=== PATIENT | male | born 1970 | race Caucasian/White ===

== ENCOUNTER 2019-10-17 14:16 | Inpatient (IN) | payer BC ==
[2019-10-17] MEDS ORDERED: KETOROLAC 30 MG/ML 1 ML VIAL IVP STA (14:44)
[2019-10-17] MEDS ORDERED: SODIUM CHLORIDE 0.9% 1,000 ML IV STA (14:44)
[2019-10-17 15:04] LABS: Basophils % (A) 0 %; Eosinophils % (A) 1 %; HCT 53.3 % (39.0-53.0); HGB 17.8 gm/dL (13.0-17.5); Lymphocytes % (A) 10 %; MCH 33.9 pg (25.0-35.0); MCHC 33.3 g/dL (31.0-37.0); MCV 101.8 fL (80.0-100.0); Monocytes % (A) 5 %; Neutrophils % (A) 83 %; Platelet Count 249 k/uL (150-450); RBC 5.24 m/uL (4.30-5.90); RDW 12.5 % (11.5-15.5); WBC 9.8 k/uL (3.8-10.6)
[2019-10-17 15:05] LABS: Eosinophils # (A) 0.1 k/uL (0-0.7); Monocytes # (A) 0.5 k/uL (0-1.0); Neutrophils # (A) 8.1 k/uL (1.3-7.7)
[2019-10-17 15:08] LABS: Appearance,Urine Clear (Clear); Bilirubin,Urine Negative (Negative); Blood,Urine Negative (Negative); Color,Urine Yellow; Glucose,Urine (UA) Negative (Negative); Ketones,Urine 1+ (Negative); Leukocyte Esterase,Urine Negative (Negative); Nitrite,Urine Negative (Negative); Protein,Urine Trace (Negative); Specific Gravity,Urine 1.027 (1.001-1.035)
[2019-10-17 15:13] LABS: ALT 25 U/L (4-49); AST 35 U/L (17-59); African American GFR (CKD) >90 (>60 ml/min/1.73 sqM); Albumin 4.4 g/dL (3.5-5.0); Alkaline Phosphatase 113 U/L (38-126); Amylase 53 U/L (30-110); Anion Gap 11 mmol/L; Blood Urea Nitrogen 11 mg/dL (9-20); Calcium 9.8 mg/dL (8.4-10.2); Carbon Dioxide 22 mmol/L (22-30); Chloride 101 mmol/L (98-107); Glucose 105 mg/dL (74-99); Non-African American GFR(CKD) >90 (>60 ml/min/1.73 sqM); Potassium 3.9 mmol/L (3.5-5.1); Sodium 134 mmol/L (137-145); Total Bilirubin 0.7 mg/dL (0.2-1.3)
--- NOTE | 2019-10-17 15:16 | ED ---
Abdominal Pain HPI <Jose Ocampo - Last Filed: 10/17/19 16:09> - General Source: patient Mode of arrival: ambulatory Limitations: no limitations <Miri Spivey - Last Filed: 10/17/19 18:53> - General Chief Complaint: Abdominal Pain Stated Complaint: nausea,abd pain Time Seen by Provider: 10/17/19 14:25 - History of Present Illness Initial Comments: Patient is a 49-year-old male, history hypertension, presenting to the emergency Department with complaints of severe abdominal pain that started this morning. Patient states for the last month he has been having irregular bowel movements with bouts of diarrhea. Patient states that has started to clear up and then today he had acute onset of abdominal discomfort that he describes as very generalized, severe from 7-10/10, and is not letting up. Patient states he's never had this kind of pain before. He denies any nausea or vomiting. He denies fever, chills, chest pain, shortness of breath. He states he had a regular bowel movement yesterday. He does admit to being an everyday drinker and has had a "few drinks" today. He also admits to being every day smoker, no other drug use. Patient has no other complaints at this time. Upon arrival to the ER, patient's blood pressure is slightly elevated at 189/99, rest of vitals normal. (Miri Spivey) - Related Data Home Medications Medication Instructions Recorded Confirmed Lisinopril-Hctz 20-12.5 mg 1 tab PO DAILY 10/17/19 10/17/19 [Zestoretic 20-12.5] Allergies Allergy/AdvReac Type Severity Reaction Status Date / Time No Known Allergies Allergy Verified 10/17/19 16:16 Review of Systems ROS Other: All systems not noted in ROS Statement are negative. <Jose Ocampo - Last Filed: 10/17/19 16:09> ROS Other: All systems not noted in ROS Statement are negative. <Miri Spivey - Last Filed: 10/17/19 18:53> ROS Statement: Those systems with pertinent positive or pertinent negative responses have been documented in the HPI. Past Medical History Past Medical History: Hypertension, Thyroid Disorder History of Any Multi-Drug Resistant Organisms: None Reported Past Surgical History: No Surgical Hx Reported Past Psychological History: No Psychological Hx Reported Smoking Status: Current every day smoker Past Alcohol Use History: None Reported Past Drug Use History: None Reported - Past Family History Father Family Medical History: Hypertension Mother Family Medical History: COPD, Hypertension Additional Family Medical History / Comment(s): Mother is . Patients grandfather from prostate cancer. <AllyssaMiri Baldemar - Last Filed: 10/17/19 18:53> General Exam Limitations: no limitations <Miri Spivey - Last Filed: 10/17/19 18:53> - General Exam Comments Initial Comments: GENERAL: Well-appearing, well-nourished and in no acute distress. HEAD: Atraumatic, normocephalic. EYES: Pupils equal round and reactive to light, extraocular movements intact, sclera anicteric, conjunctiva are normal. ENT: TMs normal, nares patent, oropharynx clear without exudates. Moist mucous membranes. NECK: Normal range of motion, supple without lymphadenopathy or JVD. LUNGS: Breath sounds clear to auscultation bilaterally and equal. No wheezes rales or rhonchi. HEART: Regular rate and rhythm without murmurs, rubs or gallops. ABDOMEN: Generalized abdominal tenderness with palpation. Soft, normoactive bowel sounds. No guarding, no rebound. No masses appreciated. : Deferred EXTREMITIES: Normal range of motion, no pitting or edema. No clubbing or cyanosis. NEUROLOGICAL: Cranial nerves II through XII grossly intact. Normal speech, normal gait. PSYCH: Normal mood, normal affect. SKIN: Warm, Dry, normal turgor, no rashes or lesions noted. (Miri Spivey) Course <Jose Ocampo - Last Filed: 10/17/19 16:09> Vital Signs 10/17/19 10/17/19 10/17/19 14:21 16:00 16:42 Temperature 98.1 F 98.1 F 98.4 F Pulse Rate 70 68 76 Respiratory 18 20 20 Rate Blood Pressure 189/99 158/76 155/65 O2 Sat by Pulse 98 98 99 Oximetry - Reevaluation(s) Reevaluation #1: 10/17/19 16:09 PA supervision: I proceeded [id number] evaluation the patient did present with complaints of abdominal pain. States it radiates more to the right than the left CAT scan was performed and did show some evidence of possible intussusception. The case was discussed with Dr. Riley the patient be admitted with medical consultation. (Jose Ocampo) Medical Decision Making - Lab Data Result diagrams: 10/17/19 14:45 10/17/19 14:45 <Jose Ocampo - Last Filed: 10/17/19 16:09> - Lab Data Result diagrams: 10/17/19 14:45 10/17/19 14:45 <Miri Spivey - Last Filed: 10/17/19 18:53> - Medical Decision Making Patient is a 41-year-old male presenting for generalized abdominal pain that started this morning. Patient states he's been having intermittent diarrhea. Normal bowel movement yesterday. He does admit to being in every day alcoholic and drinking a few drinks today. Serum alcohol today is 58. He is afebrile. Lab work shows no significant abnormalities, lactic acid is 1.8, lipase is 69, urine shows 1+ ketones. CT of the abdomen shows dilated jejunal loops suggest kate of intussusception. Patient was given fluids and pain control but is still having significant pain. Case was discussed with Dr. Sahu who recommends admission. We will put medicine on consult, [facility] protocol in place. Patient is in agreement with this plan. Case discussed with Dr. Ocampo. (Miri Spivey) - Lab Data Lab Results 10/17/19 10/17/19 10/17/19 Range/Units 14:35 14:45 14:45 WBC 9.8 (3.8-10.6) k/uL RBC 5.24 (4.30-5.90) m/uL Hgb 17.8 H (13.0-17.5) gm/dL Hct 53.3 H (39.0-53.0) % MCV 101.8 H (80.0-100.0) fL MCH 33.9 (25.0-35.0) pg MCHC 33.3 (31.0-37.0) g/dL RDW 12.5 (11.5-15.5) % Plt Count 249 (150-450) k/uL Neutrophils % 83 % Lymphocytes % 10 % Monocytes % 5 % Eosinophils % 1 % Basophils % 0 % Neutrophils # 8.1 H (1.3-7.7) k/uL Lymphocytes # 1.0 (1.0-4.8) k/uL Monocytes # 0.5 (0-1.0) k/uL Eosinophils # 0.1 (0-0.7) k/uL Basophils # 0.0 (0-0.2) k/uL PT 9.9 (9.0-12.0) sec INR 0.9 (<1.2) APTT 25.0 (22.0-30.0) sec Sodium (137-145) mmol/L Potassium (3.5-5.1) mmol/L Chloride (98-107) mmol/L Carbon Dioxide (22-30) mmol/L Anion Gap mmol/L BUN (9-20) mg/dL Creatinine (0.66-1.25) mg/dL Est GFR (CKD-EPI)AfAm (>60 ml/min/1.73 sqM) Est GFR (CKD-EPI)NonAf (>60 ml/min/1.73 sqM) Glucose (74-99) mg/dL Plasma Lactic Acid Chi (0.7-2.0) mmol/L Calcium (8.4-10.2) mg/dL Total Bilirubin (0.2-1.3) mg/dL AST (17-59) U/L ALT (4-49) U/L Alkaline Phosphatase (38-126) U/L Total Protein (6.3-8.2) g/dL Albumin (3.5-5.0) g/dL Amylase (30-110) U/L Lipase (23-300) U/L Urine Color Yellow Urine Appearance Clear (Clear) Urine pH 6.0 (5.0-8.0) Ur Specific [place] 1.027 (1.001-1.035) Urine Protein Trace H (Negative) Urine Glucose (UA) Negative (Negative) Urine Ketones 1+ H (Negative) Urine Blood Negative (Negative) Urine Nitrite Negative (Negative) Urine Bilirubin Negative (Negative) Urine Urobilinogen 2.0 (<2.0) mg/dL Ur Leukocyte Esterase Negative (Negative) Serum Alcohol mg/dL 10/17/19 10/17/19 10/17/19 Range/Units 14:45 14:45 14:45 WBC (3.8-10.6) k/uL RBC (4.30-5.90) m/uL Hgb (13.0-17.5) gm/dL Hct (39.0-53.0) % MCV (80.0-100.0) fL MCH (25.0-35.0) pg MCHC (31.0-37.0) g/dL RDW (11.5-15.5) % Plt Count (150-450) k/uL Neutrophils % % Lymphocytes % % Monocytes % % Eosinophils % % Basophils % % Neutrophils # (1.3-7.7) k/uL Lymphocytes # (1.0-4.8) k/uL Monocytes # (0-1.0) k/uL Eosinophils # (0-0.7) k/uL Basophils # (0-0.2) k/uL PT (9.0-12.0) sec INR (<1.2) APTT (22.0-30.0) sec Sodium 134 L (137-145) mmol/L Potassium 3.9 (3.5-5.1) mmol/L Chloride 101 (98-107) mmol/L Carbon Dioxide 22 (22-30) mmol/L Anion Gap 11 mmol/L BUN 11 (9-20) mg/dL Creatinine 0.76 (0.66-1.25) mg/dL Est GFR (CKD-EPI)AfAm >90 (>60 ml/min/1.73 sqM) Est GFR (CKD-EPI)NonAf >90 (>60 ml/min/1.73 sqM) Glucose 105 H (74-99) mg/dL Plasma Lactic Acid Chi 1.8 (0.7-2.0) mmol/L Calcium 9.8 (8.4-10.2) mg/dL Total Bilirubin 0.7 (0.2-1.3) mg/dL AST 35 (17-59) U/L ALT 25 (4-49) U/L Alkaline Phosphatase 113 (38-126) U/L Total Protein 7.0 (6.3-8.2) g/dL Albumin 4.4 (3.5-5.0) g/dL Amylase 53 (30-110) U/L Lipase 69 (23-300) U/L Urine Color Urine Appearance (Clear) Urine pH (5.0-8.0) Ur Specific [place] (1.001-1.035) Urine Protein (Negative) Urine Glucose (UA) (Negative) Urine Ketones (Negative) Urine Blood (Negative) Urine Nitrite (Negative) Urine Bilirubin (Negative) Urine Urobilinogen (<2.0) mg/dL Ur Leukocyte Esterase (Negative) Serum Alcohol 53 mg/dL Disposition <Jose Ocampo - Last Filed: 10/17/19 16:09> Is patient prescribed a controlled substance at d/c from ED?: No Decision Date: 10/17/19 Decision Time: 16:07 <Miri Spivey - Last Filed: 10/17/19 18:53> Clinical Impression: Abdominal pain, Intussusception, Alcohol abuse Disposition: ADMITTED IP TO THIS HOSP Condition: Good
[2019-10-17 15:18] LABS: INR 0.9 (<1.2); Prothrombin Time 9.9 sec (9.0-12.0)
--- NOTE | 2019-10-17 15:39 | CT ---
EXAMINATION TYPE: CT abdomen pelvis w con DATE OF EXAM: 10/17/2019 COMPARISON: None HISTORY: abdominal pain CT DLP: 612 mGycm CONTRAST: CT scan of the abdomen and pelvis is performed without Oral Contrast and with IV Contrast, patient in jected with 100 mL of Isovue 300. FINDINGS: LUNG BASES-: No visible nodule. No infiltrate. LIVER/GB: No calcified gallstones. No space occupying hepatic lesion. Biliary tree is of normal ca liber. PANCREAS: No inflammation. No distinct mass. SPLEEN: No splenic enlargement. No lesion seen. ADRENALS: No nodule. No thickening. KIDNEYS/BLADDER: No hydronephrosis. No nephrolithiasis. No distinct renal mass. Urinary bladder g rossly unremarkable. BOWEL: Normal appendix. Dilated jejunal loops measuring up to 3.2 cm. Axial images 35 through 40 of 9 0 axial data set and coronal images 40 through 48 suggest intussusception overlying the left midabdom en. Correlate clinically. GENITAL ORGANS: No gross abnormality. LYMPH NODES: No greater than 1cm abdominal or pelvic lymph nodes are appreciated. AORTA: No significant abnormality. OSSEOUS STRUCTURES: No significant abnormality is seen. OTHER: No significant additional abnormality is seen. IMPRESSION: 1. Dilated jejunal loops measuring up to 3.2 cm. Axial images 35 through 40 of 90 axial data set and coronal images 40 through 48 suggest intussusception overlying the left midabdomen. Correlate clinica lly.
[2019-10-17] MEDS ORDERED: THIAMINE 100 MG/ML 2 ML VIAL IM STA (16:02)
[2019-10-17] MEDS ORDERED: LORazepam 2 MG/ML INJ IV PRN ×3 (16:02)
[2019-10-17] MEDS ORDERED: ONDANSETRON 4 MG/2 ML VIAL IVP PRN (16:04)
[2019-10-17] MEDS ORDERED: NALOXONE 0.4 MG/ML 1 ML VIAL IV PRN (16:04)
[2019-10-17] MEDS ORDERED: MORPHINE SULFATE 4 MG/ML SYRINGE IVP STA (16:08)
[2019-10-17] MEDS ORDERED: SODIUM CHLORIDE 0.9% 1,000 ML IV SCH (16:15)
[2019-10-17] MEDS ORDERED: ACETAMINOPHEN TAB 325 MG TAB PO PRN (17:11)
[2019-10-17] MEDS ORDERED: HYDROmorphone 0.5 MG/0.5 ML SYRINGE IVP PRN (17:11)
[2019-10-17] MEDS: THIAMINE 100 MG TAB PO SCH (17:26)
[2019-10-17] MEDS: SODIUM CHLORIDE 0.9% 1,000 ML IV SCH (17:26)
--- NOTE | 2019-10-17 18:08 | P.GSHP ---
History of Present Illness H&P Date: 10/17/19 CHIEF COMPLAINT: Abdominal pain HISTORY OF PRESENT ILLNESS: The patient is a 49 year old male who presents with over a month and a half history of generalized abdominal pain. He reports passing flatus and having bowel movement yesterday. He does report change in bowel habits in the last 1 month as well. No reports of recent blood in stools. He was able to drink coffee and water earlier this morning. Reports more cramping sensation abdominal pain of the upper abdomen that brought him to the emergency room. No passage of flatus today. Denies any personal history of cancers. He had a CT of the abdomen and pelvis demonstrating intussusception hence the admission. Denies any alleviating factors. He does report walking causes more pain and pulling sensation of the upper abdomen. PAST MEDICAL HISTORY: See list. PAST SURGICAL HISTORY: See list. MEDICATIONS: See list. ALLERGIES: See list. SOCIAL HISTORY: See list. FAMILY HISTORY: See list. REVIEW OF ORGAN SYSTEMS: CONSTITUTIONAL: No fevers or chills. EYES: Denies any trouble with vision. No glasses. HEENT: No difficulties with hearing. No nosebleeds. No difficulty swallowing. RESPIRATORY: Denies pneumonia. Denies any troubles with breathing or dyspnea on exertion. CARDIOVASCULAR: Denies any chest pain, palpitations, or recent heart attacks. Has hypertension. GASTROINTESTINAL: Denies fatty food intolerance. Has change in bowel habits and gas bloat. GENITOURINARY: Denies any blood in urine or increased urinary frequency. NEUROLOGICAL: Denies any numbness or tingling along the distal extremities. No seizure disorders or headaches. MUSCULOSKELETAL: Has back pain, stiffness or joint arthritis. SKIN: No current skin cancer. No rash. PSYCHIATRIC: Denies current depression or suicidal thoughts. ENDOCRINE: Denies current thyroid disorders. Denies any blood sugar glucose intolerance. HEME/LYMPHATIC: Denies any lumps and bumps around the neck. No recent deep venous thrombosis. ALLERGY/IMMUNOLOGY: No immunoglobulin therapy. No immune deficiencies. BREAST: Denies current breast lumps, pain or nipple discharge. PHYSICAL EXAM: VITALS: Reviewed CONSTITUTIONAL: Well developed and in no acute distress. EYES: Conjuctivae without sclera icterus. Pupils are equally round and reactive to light. Extraocular movements grossly intact. HEAD, EARS, NOSE, THROAT: Moist buccal mucosa. Head is atraumatic, normocephalic. Hears conversational speech. No nasal drainage. NECK: Supple. No JV distention. No thyroidomegaly. RESPIRATORY: Non-labored respirations and equal bilateral excursions. No gross wheezes. CARDIOVASCULAR: Regular rate and rhythm. Extremities without moderate edema. Palpable 2+ radial pulses. ABDOMEN: Soft. No peritonitis. Minimal distention. Mild tenderness diffusely greater left upper abdomen. LYMPH: No neck lymphadenopathy. No axillary lymphadenopathy. MUSCULOSKELETAL: Nail and fingers with good capillary refill. SKIN: Warm and well perfused with good skin turgor. NEUROLOGIC: Cranial nerves II through XII grossly intact. Sensation upper and extremities intact. No focal or lateralizing signs. PSYCH: Appropriate affect. Alert and oriented to person, place and time. Displays appropriate insight. CLINCAL LABS: Reviewed. WBC normal 9800, serum alcohol elevated 53 IMAGING: Independently reviewed CT of the abdomen pelvis with bullet point intussusception at left upper quadrant. Proximal small bowel dilation. RADIOLOGY: Report reviewed consistent with intussusception. No free air. ASSESSMENT: 1. Intussusception 2. History of alcohol abuse PLAN: 1. Full inpatient admission for intussusception with small bowel obstruction 2. Hospitalist consultation for management of alcohol abuse and protocol 3. Robotic-assisted small bowel resection described for intussusception. Patient is elevated risk secondary to alcoholism. 4. Antibiotic prophylaxis 5. GI prophylaxis 6. DVT prophylaxis Past Medical History Past Medical History: Hypertension, Thyroid Disorder Additional Past Medical History / Comment(s): ETOH, patient has been drinking 1/2 pint of liquor and 3-6 beers daily for the past 2-2.5 years. History of Any Multi-Drug Resistant Organisms: None Reported Past Surgical History: No Surgical Hx Reported Past Anesthesia/Blood Transfusion Reactions: No Reported Reaction Past Psychological History: No Psychological Hx Reported Smoking Status: Current every day smoker Past Alcohol Use History: Abuse, Daily Past Drug Use History: None Reported - Past Family History Father Family Medical History: Hypertension Mother Family Medical History: COPD, Hypertension Additional Family Medical History / Comment(s): Mother is . Patients grandfather from prostate cancer. Medications and Allergies Home Medications Medication Instructions Recorded Confirmed Type Lisinopril-Hctz 20-12.5 mg 1 tab PO DAILY 10/17/19 10/17/19 History [Zestoretic 20-12.5] Allergies Allergy/AdvReac Type Severity Reaction Status Date / Time No Known Allergies Allergy Verified 10/17/19 16:16 Surgical - Exam Vital Signs Temp Pulse Resp BP Pulse Ox 98.1 F 70 18 189/99 98 10/17/19 14:21 10/17/19 14:21 10/17/19 14:21 10/17/19 14:21 10/17/19 14:21 Results - Labs 10/17/19 14:45 10/17/19 14:45 Abnormal Lab Results - Last 24 Hours (Table) 10/17/19 10/17/19 10/17/19 Range/Units 14:35 14:45 14:45 Hgb 17.8 H (13.0-17.5) gm/dL Hct 53.3 H (39.0-53.0) % MCV 101.8 H (80.0-100.0) fL Neutrophils # 8.1 H (1.3-7.7) k/uL Sodium 134 L (137-145) mmol/L Glucose 105 H (74-99) mg/dL Urine Protein Trace H (Negative) Urine Ketones 1+ H (Negative) Diabetes panel 10/17/19 Range/Units 14:45 Sodium 134 L (137-145) mmol/L Potassium 3.9 (3.5-5.1) mmol/L Chloride 101 (98-107) mmol/L Carbon Dioxide 22 (22-30) mmol/L BUN 11 (9-20) mg/dL Creatinine 0.76 (0.66-1.25) mg/dL Glucose 105 H (74-99) mg/dL Calcium 9.8 (8.4-10.2) mg/dL AST 35 (17-59) U/L ALT 25 (4-49) U/L Alkaline Phosphatase 113 (38-126) U/L Total Protein 7.0 (6.3-8.2) g/dL Albumin 4.4 (3.5-5.0) g/dL Calcium panel 10/17/19 Range/Units 14:45 Calcium 9.8 (8.4-10.2) mg/dL Albumin 4.4 (3.5-5.0) g/dL Pituitary panel 10/17/19 Range/Units 14:45 Sodium 134 L (137-145) mmol/L Potassium 3.9 (3.5-5.1) mmol/L Chloride 101 (98-107) mmol/L Carbon Dioxide 22 (22-30) mmol/L BUN 11 (9-20) mg/dL Creatinine 0.76 (0.66-1.25) mg/dL Glucose 105 H (74-99) mg/dL Calcium 9.8 (8.4-10.2) mg/dL Adrenal panel 10/17/19 Range/Units 14:45 Sodium 134 L (137-145) mmol/L Potassium 3.9 (3.5-5.1) mmol/L Chloride 101 (98-107) mmol/L Carbon Dioxide 22 (22-30) mmol/L BUN 11 (9-20) mg/dL Creatinine 0.76 (0.66-1.25) mg/dL Glucose 105 H (74-99) mg/dL Calcium 9.8 (8.4-10.2) mg/dL Total Bilirubin 0.7 (0.2-1.3) mg/dL AST 35 (17-59) U/L ALT 25 (4-49) U/L Alkaline Phosphatase 113 (38-126) U/L Total Protein 7.0 (6.3-8.2) g/dL Albumin 4.4 (3.5-5.0) g/dL Assessment and Plan (1) Hypertension Current Visit: Yes Status: Acute Code(s): I10 - ESSENTIAL (PRIMARY) HYPERTENSION SNOMED Code(s): 39532255 (2) Abdominal pain Current Visit: Yes Status: Acute Code(s): R10.9 - UNSPECIFIED ABDOMINAL PAIN SNOMED Code(s): 91298705 (3) Alcohol abuse Current Visit: Yes Status: Acute Code(s): F10.10 - ALCOHOL ABUSE, UNCOMPLICATED SNOMED Code(s): 03251330 (4) Intussusception Current Visit: Yes Status: Acute Code(s): K56.1 - INTUSSUSCEPTION SNOMED Code(s): 23628539
[2019-10-18] MEDS: KETOROLAC 30 MG/ML 1 ML VIAL IVP PRN ×2 (00:14→22:09)
[2019-10-18] MEDS: SODIUM CHLORIDE 0.9% 1,000 ML IV SCH ×3 (02:57→23:29)
[2019-10-18] MEDS: THIAMINE 100 MG TAB PO SCH ×2 (07:47→17:11)
[2019-10-18] MEDS: LISINOPRIL-HCTZ 20-12.5 MG 1 EACH TAB PO SCH (07:47)
[2019-10-18] MEDS: MORPHINE SULFATE 4 MG/ML SYRINGE IV PRN (07:54)
[2019-10-18 08:05] LABS: African American GFR (CKD) >90 (>60 ml/min/1.73 sqM); Anion Gap 15 mmol/L; Blood Urea Nitrogen 11 mg/dL (9-20); Calcium 9.7 mg/dL (8.4-10.2); Carbon Dioxide 21 mmol/L (22-30); Chloride 101 mmol/L (98-107); Glucose 70 mg/dL (74-99); Magnesium 1.6 mg/dL (1.6-2.3); Non-African American GFR(CKD) >90 (>60 ml/min/1.73 sqM); Potassium 4.2 mmol/L (3.5-5.1); Sodium 137 mmol/L (137-145)
[2019-10-18 08:15] LABS: Basophils % (A) 0 %; Eosinophils % (A) 0 %; Lymphocytes # (A) 0.9 k/uL (1.0-4.8); Lymphocytes % (A) 6 %; MCV 102.8 fL (80.0-100.0); Macrocytosis Slight; Mean Platelet Volume 9.1; Monocytes # (A) 0.6 k/uL (0-1.0); Monocytes % (A) 4 %; Neutrophils # (A) 12.9 k/uL (1.3-7.7); Neutrophils % (A) 89 %; Platelet Count 234 k/uL (150-450); RBC 5.67 m/uL (4.30-5.90); RDW 12.5 % (11.5-15.5); WBC 14.5 k/uL (3.8-10.6)
[2019-10-18 08:22] LABS: HGB 19.9 gm/dL (13.0-17.5)
[2019-10-18 08:23] LABS: HCT 58.4 % (39.0-53.0)
[2019-10-18] MEDS ORDERED: SODIUM CHLORIDE 0.9% 2,000 ML IV ONE (08:52)
[2019-10-18] MEDS ORDERED: PIPERACILLIN-TAZOBACTAM 3.375 GM in SODIUM CHLORIDE 0.9% 100 ML IVPB STA (08:53)
[2019-10-18 09:50] VITALS: BMI 22.6
--- NOTE | 2019-10-18 10:12 | P.CONS ---
History of Present Illness - History of Present Illness This is a pleasant 41 years old male with past medical history of hypertension, and alcohol drinking daily. He is a patient of Dr. Girma Arthur. Presents because of abdominal pain. His pain started when day earlier, periumbilical radiating to the back felt like colleague about 7-8/10 in severity associated with some nausea and vomited once yesterday with bile and no blood. Also since yesterday no bowel movement or passing gas He smokes about 1 pack per day and drinks 6 beers and with some liquor every day. Denies illicit drug use Vitas looks stable and blood pressure is slightly on the high side. His hemoglobin was 17.8 and today more critical 19.9 with hematocrit 58.4 Other Labs including CBC, INR, BMP, liver enzymes were unremarkable, alcohol slightly elevated at 53. Urine analysis not suggestion of infection On admission he has CT of the abdomen and pelvis with contrast showing Dilated jejunal loops measuring up to 3.2 cm suggesting intussusception On admission patient was started on CIWA protocol, same, normal saline at 100 mL per hour. Pain medicine Patient also was given 1 dose of Zosyn and continue thereafter every 8 hours Review of Systems Review of systems CONSTITUTIONAL: No fever, no malaise, no fatigue. HEENT: No recent visual problems or hearing problems. Denied any sore throat. CARDIOVASCULAR: No orthopnea, PND, no palpitations, no syncope. PULMONARY: No shortness of breath, no cough, no hemoptysis. nausea, no vomiting, no abdominal pain. Normoactive bowel sounds. NEUROLOGICAL: No headaches, no weakness, no numbness. HEMATOLOGICAL: Denies any bleeding or petechiae. GENITOURINARY: Denies any burning micturition, frequency, or urgency. MUSCULOSKELETAL/RHEUMATOLOGICAL: Denies any joint pain, swelling, or any muscle pain. ENDOCRINE: Denies any polyuria or polydipsia. Past Medical History Past Medical History: Hypertension, Thyroid Disorder Additional Past Medical History / Comment(s): ETOH, patient has been drinking 1/2 pint of liquor and 3-6 beers daily for the past 2-2.5 years. History of Any Multi-Drug Resistant Organisms: None Reported Past Surgical History: No Surgical Hx Reported Past Anesthesia/Blood Transfusion Reactions: No Reported Reaction Past Psychological History: No Psychological Hx Reported Smoking Status: Current every day smoker Past Alcohol Use History: None Reported Past Drug Use History: None Reported - Past Family History Father Family Medical History: Hypertension Mother Family Medical History: COPD, Hypertension Additional Family Medical History / Comment(s): Mother is . Patients grandfather from prostate cancer. Medications and Allergies Home Medications Medication Instructions Recorded Confirmed Type Lisinopril-Hctz 20-12.5 mg 1 tab PO DAILY 10/17/19 10/17/19 History [Zestoretic 20-12.5] Allergies Allergy/AdvReac Type Severity Reaction Status Date / Time No Known Allergies Allergy Verified 10/17/19 16:16 Physical Exam Vitals: Vital Signs Temp Pulse Pulse Pulse Resp BP BP 10/18/19 07:10 98.0 F 95 16 169/84 10/18/19 01:08 98.2 F 84 16 162/97 10/17/19 19:32 98.7 F 70 16 151/91 10/17/19 17:06 98.2 F 75 17 10/17/19 16:42 98.4 F 76 20 155/65 10/17/19 16:00 98.1 F 68 20 158/76 10/17/19 14:21 98.1 F 70 18 189/99 BP Pulse Ox 10/18/19 07:10 98 10/18/19 01:08 95 10/17/19 19:32 97 10/17/19 17:06 156/95 99 10/17/19 16:42 99 10/17/19 16:00 98 10/17/19 14:21 98 Intake and Output 10/17/19 10/18/19 10/18/19 22:59 06:59 14:59 Other: Voiding Method Toilet # Voids 2 Weight 61.689 kg 61.689 kg GENERAL: The patient is alert and oriented x3, not in any acute distress. Well developed, well nourished. HEENT: Pupils are round and equally reacting to light. EOMI. No scleral icterus. No conjunctival pallor. Normocephalic, atraumatic. No pharyngeal erythema. No thyromegaly. CARDIOVASCULAR: S1 and S2 present. No murmurs, rubs, or gallops. PULMONARY: Chest is clear to auscultation, no wheezing or crackles. -ABDOMEN: Soft, periumbilical tenderness with no rebound tenderness or guarding, nondistended, normoactive bowel sounds. No palpable organomegaly. MUSCULOSKELETAL: No joint swelling or deformity. EXTREMITIES: No cyanosis, clubbing, or pedal edema. NEUROLOGICAL: Gross neurological examination did not reveal any focal deficits. SKIN: No rashes. no petechiae. Results CBC & Chem 7: 10/18/19 06:33 10/18/19 06:33 Labs: Abnormal Lab Results - Last 24 Hours (Table) 10/17/19 10/17/19 10/17/19 Range/Units 14:35 14:45 14:45 WBC (3.8-10.6) k/uL Hgb 17.8 H (13.0-17.5) gm/dL Hct 53.3 H (39.0-53.0) % MCV 101.8 H (80.0-100.0) fL Neutrophils # 8.1 H (1.3-7.7) k/uL Lymphocytes # (1.0-4.8) k/uL Sodium 134 L (137-145) mmol/L Carbon Dioxide (22-30) mmol/L Glucose 105 H (74-99) mg/dL Urine Protein Trace H (Negative) Urine Ketones 1+ H (Negative) 10/18/19 10/18/19 Range/Units 06:33 06:33 WBC 14.5 H (3.8-10.6) k/uL Hgb 19.9 H* (13.0-17.5) gm/dL Hct 58.4 H* (39.0-53.0) % MCV 102.8 H (80.0-100.0) fL Neutrophils # 12.9 H (1.3-7.7) k/uL Lymphocytes # 0.9 L (1.0-4.8) k/uL Sodium (137-145) mmol/L Carbon Dioxide 21 L (22-30) mmol/L Glucose 70 L (74-99) mg/dL Urine Protein (Negative) Urine Ketones (Negative) Assessment and Plan Assessment: Jejunal intussusception, with small bowel obstruction high hemoglobin with polycythemia High hemoglobin with polycythemia, could be related to smoking. Rule out other causes Hypertension Alcohol abuse at-risk of alcohol withdrawal and delirium tremens Plan: This is a pleasant 43 years old male who presents with digital intussusception, and alcohol abuse. Continue with CIWA protocol, continue with same. Ativan as needed. Surgical team R following the case closely for the management of his bowel obstruction and intussusception.Call hematology consult Labs and medication were reviewed.. Continue same treatment. Continue with symptomatic treatment. Resume home medication. Monitor lytes and vitals. DVT and GI prophylaxis. Further recommendations of the clinical course of the patient DVT prophylaxis: Subcutaneous heparin GI Prophylaxis: Pepcid Prognosis is guarded Thank you for consulting us, We'll follow up with the patient
--- NOTE | 2019-10-18 11:27 | P.PN ---
Subjective Progress Note Date: 10/18/19 CHIEF COMPLAINT: Abdominal pain HISTORY OF PRESENT ILLNESS: The patient is a 49 year old male who presented with CT of the abdomen pelvis of intussusception. Abdominal pain is better today than yesterday. He had emesis last night. No flatus yesterday or today. REVIEW OF ORGAN SYSTEMS: No fevers or chills. No chest pain. No productive sputum. PHYSICAL EXAM: VITALS: Reviewed CONSTITUTIONAL: Well developed and in no acute distress. EYES: Conjuctivae without sclera icterus. Pupils are equally round and reactive to light. Extraocular movements grossly intact. HEAD, EARS, NOSE, THROAT: Moist buccal mucosa. Head is atraumatic, normocephalic. Hears conversational speech. No nasal drainage. NECK: Supple. No JV distention. No thyroidomegaly. RESPIRATORY: Non-labored respirations and equal bilateral excursions. No gross wheezes. CARDIOVASCULAR: Regular rate and rhythm. Extremities without moderate edema. Palpable 2+ radial pulses. ABDOMEN: Soft. No peritonitis. Minimal distention. MUSCULOSKELETAL: Nail and fingers with good capillary refill. SKIN: Warm and well perfused with good skin turgor. NEUROLOGIC: Cranial nerves II through XII grossly intact. Sensation upper and extremities intact. No focal or lateralizing signs. PSYCH: Appropriate affect. Alert and oriented to person, place and time. Displays appropriate insight. CLINCAL LABS: Reviewed. WBC up to 14,500 from 9800. Hgb up from 17.8 to 19.9 ASSESSMENT: 1. Intussusception per computed tomography scan 2. History of alcohol abuse 3. Elevated hemoglobin PLAN: 1. Benefits and risks of surgery described including bowel resection. 2. Inpatient hospitalization for another 5 days described. 3. Keep NPO. 4. IV fluid hydration for dehydration of 2-L normal saline. 5. Hgb elevated, pre-existing at the time of admission. Will recheck following IV fluid hydration 6. Start Zosyn for elevated white count and infection. 7. He is at increased risk for perioperative complications due to history of al cohol abuse and tobacco abuse. Objective - Vital Signs Vital signs: Vital Signs Temp 98.0 F 10/18/19 07:10 Pulse 95 10/18/19 07:10 Resp 16 10/18/19 07:10 BP 169/84 10/18/19 07:10 Pulse Ox 98 10/18/19 07:10 Intake & Output 10/17/19 10/18/19 10/18/19 18:59 06:59 18:59 Weight 61.689 kg 61.689 kg Other: Voiding Method Toilet Toilet # Voids 2 - Labs CBC & Chem 7: 10/18/19 06:33 10/18/19 06:33 Labs: Abnormal Lab Results - Last 24 Hours (Table) 10/17/19 10/17/19 10/17/19 Range/Units 14:35 14:45 14:45 WBC (3.8-10.6) k/uL Hgb 17.8 H (13.0-17.5) gm/dL Hct 53.3 H (39.0-53.0) % MCV 101.8 H (80.0-100.0) fL Neutrophils # 8.1 H (1.3-7.7) k/uL Lymphocytes # (1.0-4.8) k/uL Sodium 134 L (137-145) mmol/L Carbon Dioxide (22-30) mmol/L Glucose 105 H (74-99) mg/dL Urine Protein Trace H (Negative) Urine Ketones 1+ H (Negative) 10/18/19 10/18/19 Range/Units 06:33 06:33 WBC 14.5 H (3.8-10.6) k/uL Hgb 19.9 H* (13.0-17.5) gm/dL Hct 58.4 H* (39.0-53.0) % MCV 102.8 H (80.0-100.0) fL Neutrophils # 12.9 H (1.3-7.7) k/uL Lymphocytes # 0.9 L (1.0-4.8) k/uL Sodium (137-145) mmol/L Carbon Dioxide 21 L (22-30) mmol/L Glucose 70 L (74-99) mg/dL Urine Protein (Negative) Urine Ketones (Negative) Assessment and Plan (1) Hypertension Current Visit: Yes Status: Acute Code(s): I10 - ESSENTIAL (PRIMARY) HYPERTENSION SNOMED Code(s): 79024463 (2) Abdominal pain Current Visit: Yes Status: Acute Code(s): R10.9 - UNSPECIFIED ABDOMINAL PAIN SNOMED Code(s): 33439795 (3) Alcohol abuse Current Visit: Yes Status: Acute Code(s): F10.10 - ALCOHOL ABUSE, UNCOMPLICATED SNOMED Code(s): 35437968 (4) Intussusception Current Visit: Yes Status: Acute Code(s): K56.1 - INTUSSUSCEPTION SNOMED Code(s): 13294037 (5) Tobacco abuse Current Visit: Yes Status: Acute Code(s): Z72.0 - TOBACCO USE SNOMED Code(s): 870087288 (6) Polycythemia Current Visit: Yes Status: Acute Code(s): D75.1 - SECONDARY POLYCYTHEMIA SNOMED Code(s): 976115810 (7) Leukocytosis Current Visit: Yes Status: Acute Code(s): D72.829 - ELEVATED WHITE BLOOD CELL COUNT, UNSPECIFIED SNOMED Code(s): 352806371 (8) Small bowel obstruction Current Visit: Yes Status: Acute Code(s): K56.609 - UNSP INTESTNL OBST, UNSP TO PARTIAL VERSUS COMPLETE OBST SNOMED Code(s): 432017507 (9) Dehydration Current Visit: Yes Status: Acute Code(s): E86.0 - DEHYDRATION SNOMED Code(s): 74989963
[2019-10-18 11:58] LABS: Uric Acid 7.8 mg/dL (3.5-8.5)
[2019-10-18] MEDS: HEPARIN SODIUM,PORCINE 5,000 UNIT/ML 1 ML VIAL SQ SCH ×2 (12:12→18:22)
[2019-10-18] MEDS ORDERED: IV FLUID CONTINUATION 1,000 ML IV ONE (14:33)
[2019-10-18] MEDS ORDERED: LABETALOL 5 MG/ML VIAL MDV ONE (15:00)
[2019-10-18] MEDS ORDERED: GLYCOPYRROLATE 0.2 MG/ML 2 ML VIAL ONE (15:00)
[2019-10-18] MEDS ORDERED: NEOSTIGMINE 1 MG/ML 10 ML VIAL ONE (15:00)
[2019-10-18] MEDS ORDERED: MIDAZOLAM 2 MG/2 ML VIAL ONE (15:00)
[2019-10-18] MEDS ORDERED: KETAMINE 10 MG/ML 20 ML VIAL ONE (15:00)
[2019-10-18] MEDS ORDERED: ePHEDrine SULFATE/0.9% NACL/PF 50 MG/5 ML SYRINGE IV ONE (15:00)
[2019-10-18] MEDS ORDERED: SODIUM CHLORIDE 0.9% 100 ML BAG ONE (15:00)
[2019-10-18] MEDS ORDERED: ROCURONIUM BROMIDE 10 MG/ML 5 ML VIAL IV ONE (15:00)
[2019-10-18] MEDS ORDERED: LIDOCAINE 1% INJ 10MG/ML (20 ML MDV) ONE (15:00)
[2019-10-18] MEDS ORDERED: fentaNYL (PF) 50 MCG/ML 2 ML AMP ONE (15:00)
[2019-10-18] MEDS ORDERED: PHENYLEPHRINE-0.9% NACL SYG 1 MG/10 ML SYRINGE ONE (15:00)
[2019-10-18] MEDS ORDERED: PROPOFOL 10 MG/ML 20 ML VIAL IV ONE (15:00)
[2019-10-18] MEDS ORDERED: ceFAZolin 1,000 MG VIAL ONE (15:00)
[2019-10-18] MEDS ORDERED: SUCCINYLCHOLINE CHLORIDE 100 MG/5 ML SYR IV ONE (15:00)
[2019-10-18] MEDS ORDERED: HYDROmorphone (PF) 1 MG/ML ONE (15:00)
[2019-10-18] MEDS ORDERED: BUPIVACAIN-EPI 0.25%-1:200,000 30 ML VIAL SQ ONE (15:39)
--- NOTE | 2019-10-18 15:42 | P.CONS ---
History of Present Illness - Reason for Consult Consult date: 10/18/19 Increased Hemaglobin Requesting physician: Asad E Sheet - Chief Complaint Abdominal Pain - History of Present Illness Mr. Naranjo is a 49 year old male who presented to [facility] for abdominal pain. He states the pain in abdomen is intermittent and generalized. He states it has worsened over the past month but started to notice it last month. He is moving bowels and passing flatulence. Denies changes in bowel habits, no noticeable weight loss. The pain is described as sharp and cramping. A CT abdomen was performed and revealed intussusception overlying the left midabdomen, therefore he has been admitted and general surgery consulted. PLan for surgical intervention today with Dr. Louis. Plan is for robotic-assisted small bowel resection described for intussusception. He is a known everyday smoker and ETOH dependence. His hemoglobin is 19.9 today, this was likely elevated prior to admission and could be secondary to chronic tobacco use. Hematology has been consulted to further assess elevated hemoglobin. Review of Systems A 14 point review of systems assessed and completed and all negative except HPI Past Medical History Past Medical History: Hypertension, Thyroid Disorder Additional Past Medical History / Comment(s): ETOH, patient has been drinking 1/ 2 pint of liquor and 3-6 beers daily for the past 2-2.5 years. History of Any Multi-Drug Resistant Organisms: None Reported Past Surgical History: No Surgical Hx Reported Past Anesthesia/Blood Transfusion Reactions: No Reported Reaction Past Psychological History: No Psychological Hx Reported Smoking Status: Current every day smoker Past Alcohol Use History: None Reported Past Drug Use History: None Reported - Past Family History Father Family Medical History: Hypertension Mother Family Medical History: COPD, Hypertension Additional Family Medical History / Comment(s): Mother is . Patients grandfather from prostate cancer. Medications and Allergies Home Medications Medication Instructions Recorded Confirmed Type Lisinopril-Hctz 20-12.5 mg 1 tab PO DAILY 10/17/19 10/17/19 History [Zestoretic 20-12.5] Acetaminophen Tab [Tylenol Tab] 500 mg PO Q6H PRN #30 tablet 10/19/19 Rx Ibuprofen [Motrin] 600 mg PO Q8HR PRN #30 tab 10/19/19 Rx Omeprazole [PriLOSEC] 40 mg PO DAILY #14 cap 10/19/19 Rx Allergies Allergy/AdvReac Type Severity Reaction Status Date / Time No Known Allergies Allergy Verified 10/17/19 16:16 Physical Exam Vitals: Vital Signs Temp Pulse Pulse Pulse Pulse Resp BP 10/18/19 14:30 76 16 10/18/19 07:10 98.0 F 95 16 10/18/19 01:08 98.2 F 84 16 10/17/19 19:32 98.7 F 70 16 10/17/19 17:06 98.2 F 75 17 10/17/19 16:42 98.4 F 76 20 155/65 10/17/19 16:00 98.1 F 68 20 158/76 BP BP BP Pulse Ox 10/18/19 14:30 174/91 97 10/18/19 07:10 169/84 98 10/18/19 01:08 162/97 95 10/17/19 19:32 151/91 97 10/17/19 17:06 156/95 99 10/17/19 16:42 99 10/17/19 16:00 98 Intake and Output 10/18/19 10/18/19 10/18/19 06:59 14:59 22:59 Other: Voiding Method Toilet Weight 61.689 kg Results CBC & Chem 7: 10/19/19 07:23 10/18/19 06:33 Labs: Abnormal Lab Results - Last 24 Hours (Table) 10/18/19 10/18/19 10/18/19 Range/Units 06:33 06:33 11:33 WBC 14.5 H (3.8-10.6) k/uL Hgb 19.9 H* (13.0-17.5) gm/dL Hct 58.4 H* (39.0-53.0) % MCV 102.8 H (80.0-100.0) fL Neutrophils # 12.9 H (1.3-7.7) k/uL Lymphocytes # 0.9 L (1.0-4.8) k/uL Carbon Dioxide 21 L (22-30) mmol/L Glucose 70 L (74-99) mg/dL Lactate Dehydrogenase 283 L (313-618) U/L Assessment and Plan Plan: Assessment and Recommendations: Elevated Hemoglobin: - Polycythemia work-up ordered. This is likely a secondary polycythemia with current everyday tobacco use, ETOH use - Erythropoetic, Iron studies, B12, Folate, Seratonin, JAK2 ordered - Possible increased risk for clot formation, surgical intervention today consider post-operative anticoagulation - Underlying myeloproliferative disorder is considered to be another differential. Intussusception mid abdomen: - Surgical intervention bowel resection today with Dr. Louis Plan: - Address and stabilize acute situation with need of surgical intervention and monitor closely for post operative recovery given increased risks related to ETOH, Tobacco abuse and increased risk for clotting with elevated hemoglobin - Further work-up for increased hemoglobin can be considered outpatient - Highly recommend Smoking and ETOH cessation Thank you for allowing us to participate in the care of this patient we will follow along with you
[2019-10-18] MEDS: PIPERACILLIN-TAZOBACTAM 3.375 GM in SODIUM CHLORIDE 0.9% 100 ML IVPB SCH ×2 (15:47→23:28)
[2019-10-18 16:14] LABS: % Iron Saturation 19.05 (15.00-50.00)
[2019-10-18 16:23] LABS: Ferritin 201.8 ng/mL (22.0-322.0)
[2019-10-18] MEDS ORDERED: LACTATED RINGERS 1,000 ML IV ONE (16:33)
[2019-10-18 16:37] LABS: Folate, Serum 17.9 ng/mL
[2019-10-18] MEDS ORDERED: METOCLOPRAMIDE 5 MG/ML 2 ML VIAL IVP PRN (18:00)
[2019-10-18] MEDS ORDERED: HYDROcodone/APAP 5-325MG 1 EACH TAB PO PRN (18:00)
--- NOTE | 2019-10-18 18:00 | P.OP ---
Date of Procedure: 10/18/19 Description of Procedure: SURGEON: PRIYANKA WOOD MD PREOPERATIVE DIAGNOSES: 1. Abnormal computed tomography scan, intussusception with small bowel obstruction 2. Chronic tobacco abuse 3. Alcohol abuse 4. Hypertensive heart disease 5. Pre-existing elevated hemoglobin POSTOPERATIVE DIAGNOSES: 1. Complete small bowel obstruction due to omental internal hernia 2. Chronic tobacco abuse 3. Alcohol abuse 4. Hypertensive heart disease 5. Pre-existing elevated hemoglobin 6. Blood tinged abdominal ascites 7. Strangulated small bowel due to complete small bowel obstruction from internal hernia OPERATION: 1. Robotic-assisted daVinci Xi laparoscopic small bowel resection 2. Robotic-assisted daVinci Xi laparoscopic resection of omental band/internal hernia 3. Drainage of abdominal ascites slicing of peritoneal ANESTHESIA: General with local ESTIMATED BLOOD LOSS: 5 mL SPECIMENS REMOVED: Small bowel resection, mid jejunum, 10 cm FINDINGS: 1. Blood tinged ascites evacuated from the abdomen 2. Complete small bowel infarction of mid jejunum, 10 cm resected 3. No evidence of intussusception 4. Complete small bowel obstruction due to internal hernia of greater omentum resected 5. Long redundant appendix unremarkable 6. No inguinal hernias 7. Terminal ileum unremarkable 8. Antiperistaltics side to side small bowel resection with anastomosis 9. Mesenteric defect closed at anastomosis INDICATIONS: The patient is a 49-year-old male who presents with initially over 1 month history of change in bowel habits. In the last 24 hours reports no passage of flatus including generalized abdominal pain more localized on the left upper quadrant. Additional workup demonstrated elevated hemoglobin pre- existing to admission. CT of the abdomen and pelvis per radiology description showed intussusception of the left upper quadrant. Surgical options were described including small bowel resection. Robotic-assisted approach as described with possibility of open technique. Benefits and risks, including infection, possibility for additional surgery was discussed at length. Informed consent was obtained. All questions of the patient were answered. DESCRIPTION: The patient was transferred to the operating room and placed supine. The patient was then intubated. A Escobedo catheter was placed. The abdomen was then prepped and draped in standard sterile fashion. After a timeout protocol was performed, attention was then brought to the left upper quadrant whereby a 0 degree 5 mm laparoscopic trocar entry was performed. The abdominal cavity was entered and insufflated to 15 mmHg pressure, which was tolerated well. Diagnostic laparoscopy demonstrated infarct small bowel with a left upper quadrant. The appendix was unremarkable. No evidence of inguinal hernias was identified. Terminal and was unremarkable. Blood tinged ascites consistent with hemoperitoneum was identified. All 4 arms of the robot were used. Next an robotic 12-mm trocar was placed along the left lateral abdominal wall 15 cm proximal from the pelvis. A 12 mm port was placed along the right lateral abdominal wall followed by another robotic 8-mm port placed along the right upper quadrant. Ports were placed 8 cm apart from each other including 15 away from the target anatomy of the left pelvis. The 5-mm port was exchanged for an 8 mm robotic port. The stapler 12-mm port was placed along the right lateral and left lateral abdominal wall. The patient was then placed in Trendelenburg position, 16. The robotic da Amanda Xi system was primed. The robot was docked along the right-side of the patient. Using a grasper for arm 1, a grasper for arm 3, including vessel sealer for arm 4, the robotic system was docked and primed as described. Instruments were interchanged by the computer assistant including scissors, suction gas line installer supervisor, robotic stapler and vessel sealer. Next, attention was brought to identify the cecum and appendix. The small intestine was investigated from distal to proximal starting from the terminal ileum which was unremarkable. At the mid jejunum, venous engorged 10 cm portion of the jejunum was identified with vessel infarction consistent with small bowel focal infarction. Closer inspection confirmed no evidence of intussusception. An internal hernia involving the greater omentum defect was resected using vessel sealer. The small bowel was observed for any revascularization beyond 5 minutes. The small bowel was infarcted and prepared for resection. A stay suture using 0 silk was placed along the anterior serosa of the proximal and distal ends of the infarcted mid jejunum. A window was created along the mesentery of the jejunum using vessel sealer. The mesentery was mobilized along the infarcted bowel. Using robot stapler 45 mm white loads, the stapler was fired proximally and distally of the infarcted bowel. The proximal and distal jejunum was brought in antiperistaltic fashion after placing interrupted sutures along the proposed linsey-lumen using 3-0 silk. Enterotomies were made along both limbs using hook cautery. Minimal enteric content spillage occurred and irrigated. Next, 45 mm stapler blue loads were fired to create the linsey-lumen of 90 mm. The enterotomy of the linsey-lumen was closed using 45 mm blue loads after closing the enterotomy using 3-0 silk. The pelvis was irrigated using normal saline until clear. All needles were removed from the abdomen. The robot was undocked. I re-scrubbed into the case. Via the 12 mm port of the left upper lateral trocar, the specimen was removed. The fascial defect was less than 8 mm in size. Next all pneumoperitoneum was evacuated from the abdominal cavity. The trocar sites were reapproximated using 4-0 Monocryl in an interrupted subcuticular fashion after irrigating using warm normal saline and hydrogen peroxide solution. Local anesthetic was infiltrated to all wounds for postop analgesia. An Optifoam surgical dressing was placed over the colon extraction site. Exofin was applied to the rest of the skin incisions. The patient had tolerated the procedure well. Estimated blood loss was approximately 5 mL. The patient was extubated successfully.
[2019-10-18] MEDS ORDERED: TAMSULOSIN 0.4 MG CAP.ER.24H PO STA (18:02)
[2019-10-18] MEDS: PANTOPRAZOLE 40 MG/10 ML VIAL IV SCH (18:27)
[2019-10-19] MEDS: MORPHINE SULFATE 4 MG/ML SYRINGE IV PRN (03:04)
[2019-10-19] MEDS: PANTOPRAZOLE 40 MG/10 ML VIAL IV SCH (07:58)
[2019-10-19] MEDS: HEPARIN SODIUM,PORCINE 5,000 UNIT/ML 1 ML VIAL SQ SCH (07:58)
[2019-10-19] MEDS: SODIUM CHLORIDE 0.9% 1,000 ML IV SCH (07:59)
[2019-10-19] MEDS: THIAMINE 100 MG TAB PO SCH (08:10)
[2019-10-19] MEDS: PIPERACILLIN-TAZOBACTAM 3.375 GM in SODIUM CHLORIDE 0.9% 100 ML IVPB SCH (08:15)
[2019-10-19] MEDS ORDERED: TAMSULOSIN 0.4 MG CAP.ER.24H PO SCH (08:30)
[2019-10-19 08:50] LABS: Basophils % (A) 0 %; Eosinophils # (A) 0.1 k/uL (0-0.7); Eosinophils % (A) 1 %; Lymphocytes # (A) 1.9 k/uL (1.0-4.8); Lymphocytes % (A) 20 %; MCV 102.9 fL (80.0-100.0); Macrocytosis Slight; Mean Platelet Volume 8.4; Monocytes # (A) 0.7 k/uL (0-1.0); Monocytes % (A) 7 %; Neutrophils # (A) 6.9 k/uL (1.3-7.7); Neutrophils % (A) 71 %; Platelet Count 196 k/uL (150-450); RBC 4.08 m/uL (4.30-5.90); RDW 12.6 % (11.5-15.5); WBC 9.7 k/uL (3.8-10.6)
[2019-10-19 09:09] LABS: HGB 13.9 gm/dL (13.0-17.5)
[2019-10-19 09:32] VITALS: BP 113/71; PULSE 73; RESP 18; TEMP 97.4
--- NOTE | 2019-10-19 10:35 | P.PN ---
Subjective This is a pleasant 41 years old male with past medical history of hypertension, and alcohol drinking daily. He is a patient of Dr. Girma Arthur. Presents because of abdominal pain. His pain started when day earlier, periumbilical radiating to the back felt like colleague about 7-8/10 in severity associated with some nausea and vomited once yesterday with bile and no blood. Also since yesterday no bowel movement or passing gas He smokes about 1 pack per day and drinks 6 beers and with some liquor every day. Denies illicit drug use Vitas looks stable and blood pressure is slightly on the high side. His hemoglobin was 17.8 and today more critical 19.9 with hematocrit 58.4 Other Labs including CBC, INR, BMP, liver enzymes were unremarkable, alcohol slightly elevated at 53. Urine analysis not suggestion of infection On admission he has CT of the abdomen and pelvis with contrast showing Dilated jejunal loops measuring up to 3.2 cm suggesting intussusception On admission patient was started on CIWA protocol, same, normal saline at 100 mL per hour. Pain medicine Patient also was given 1 dose of Zosyn and continue thereafter every 8 hours 10/19/2019 Patient is having some abdominal pain, no nausea vomiting is clear liquid diet and tolerating that well No bowel movement or passing gases. Patient instructed about his problem of high hemoglobin mostly due to smoking and alcohol, patient encouraged to quit the stool and he agrees. Also there is possibility of myelo-dysplastic disease, with possible tumor in his bone marrow with the patient encouraged to follow up with stem shaper Dr. Chavarria as an outpatient in 1-2 weeks after discharge and he verbalized understanding and acceptance However his hemoglobin went down to 13.9 today, WBC 9.7K. Platelet is within normal limits. Ginning Operator team R following the case closely, his CIWA score is a 3 Objective - Vital Signs Vital signs: Vital Signs Temp 97.4 F L 10/19/19 07:00 Pulse 73 10/19/19 07:00 Resp 18 10/19/19 07:00 BP 113/71 10/19/19 07:00 Pulse Ox 97 10/19/19 07:00 Intake & Output 10/18/19 10/19/19 10/19/19 18:59 06:59 18:59 Intake Total 1500 Output Total 5 Balance 1495 Weight 61.689 kg Intake: IV 1500 Output: Estimated Blood Loss 5 Other: Voiding Method Toilet # Voids 2 # Bowel Movements 0 - Exam GENERAL: The patient is alert and oriented x3, not in any acute distress. Well developed, well nourished. HEENT: Pupils are round and equally reacting to light. EOMI. No scleral icterus. No conjunctival pallor. Normocephalic, atraumatic. No pharyngeal erythema. No thyromegaly. CARDIOVASCULAR: S1 and S2 present. No murmurs, rubs, or gallops. PULMONARY: Chest is clear to auscultation, no wheezing or crackles. -ABDOMEN: Soft, nondistended, normoactive bowel sounds. No palpable organomegaly. Surgical site tenderness which is expected MUSCULOSKELETAL: No joint swelling or deformity. EXTREMITIES: No cyanosis, clubbing, or pedal edema. NEUROLOGICAL: Gross neurological examination did not reveal any focal deficits. SKIN: No rashes. no petechiae. - Labs CBC & Chem 7: 10/19/19 07:23 10/18/19 06:33 Labs: Abnormal Lab Results - Last 24 Hours (Table) 10/18/19 10/19/19 Range/Units 11:33 07:23 RBC 4.08 L (4.30-5.90) m/uL MCV 102.9 H (80.0-100.0) fL Iron 44 L (65-175) ug/dL Lactate Dehydrogenase 283 L (313-618) U/L Assessment and Plan Assessment: Jejunal intussusception, with small bowel obstruction high hemoglobin with polycythemia High hemoglobin with polycythemia, mostly related to smoking and alcohol drink ing Hypertension Alcohol abuse at-risk of alcohol withdrawal and delirium tremens Plan: This is a pleasant 43 years old male who presents with digital intussusception, and alcohol abuse. Continue with CIWA protocol, continue with same. Ativan as needed. Surgical team R following the case closely for the management of his bowel obstruction and intussusception.Call hematology consult Labs and medication were reviewed.. Continue same treatment. Continue with symptomatic treatment. Resume home medication. Monitor lytes and vitals. DVT and GI prophylaxis. Further recommendations of the clinical course of the patient DVT prophylaxis: Subcutaneous heparin GI Prophylaxis: Pepcid Prognosis is guarded Thank you for consulting us, We'll follow up with the patient
--- NOTE | 2019-10-19 11:45 | P.DS ---
Providers Date of admission: 10/17/19 16:08 Expected date of discharge: 10/19/19 Attending physician: Shania Louis Consults: 10/17/19 16:04 Consult Physician Stat Consulting Provider: Asad Hooks Consult Reason/Comments: Alcoholism, abdominal pain, intussusception Do you want consulting provider notified?: Yes 10/18/19 10:10 Consult Physician Routine Consulting Provider: Reynold Chavarria Consult Reason/Comments: High hemoglobin level Do you want consulting provider notified?: Yes Primary care physician: Sandhya Rayo - Discharge Diagnosis(es) (1) Hypertension Current Visit: Yes Status: Acute (2) Abdominal pain Current Visit: Yes Status: Acute (3) Alcohol abuse Current Visit: Yes Status: Acute (4) Intussusception Current Visit: Yes Status: Inactive (5) Tobacco abuse Current Visit: Yes Status: Acute (6) Polycythemia Current Visit: Yes Status: Acute (7) Leukocytosis Current Visit: Yes Status: Acute (8) Small bowel obstruction Current Visit: Yes Status: Acute (9) Dehydration Current Visit: Yes Status: Acute Hospital Course: CHIEF COMPLAINT: Abdominal pain HISTORY OF PRESENT ILLNESS: The patient is a 49 year old male who presented with CT of the abdomen pelvis of intussusception. He is POD 1. He is s/p small bowel resection 10/19/19 for closed loop small bowel obstruction from internal hernia and small bowel infarction. He feels much better today. Hgb now normal as he presented with severe dehydration from alcohol abuse and bowel obstruction. He is tolerating diet. He is voiding copiously and spontaneously. REVIEW OF ORGAN SYSTEMS: No fevers or chills. No chest pain. No productive sputum. No dyspnea. PHYSICAL EXAM: VITALS: Reviewed CONSTITUTIONAL: Well developed and in no acute distress. EYES: Conjuctivae without sclera icterus. Pupils are equally round and reactive to light. Extraocular movements grossly intact. HEAD, EARS, NOSE, THROAT: Moist buccal mucosa. Head is atraumatic, normocephalic. Hears conversational speech. No nasal drainage. NECK: Supple. No JV distention. No thyroidomegaly. RESPIRATORY: Non-labored respirations and equal bilateral excursions. No gross wheezes. CARDIOVASCULAR: Regular rate and rhythm. Extremities without moderate edema. Palpable 2+ radial pulses. ABDOMEN: Soft. Incisions and clean, dry and intact. MUSCULOSKELETAL: Nail and fingers with good capillary refill. SKIN: Warm and well perfused with good skin turgor. NEUROLOGIC: Cranial nerves II through XII grossly intact. Sensation upper and extremities intact. No focal or lateralizing signs. PSYCH: Appropriate affect. Alert and oriented to person, place and time. Displays appropriate insight. CLINCAL LABS: Reviewed. WBC up to 14,500 from 9800. Hgb down from 19.9 to 13.9 ASSESSMENT: 1. Small bowel obstruction with strangulation 2. History of alcohol abuse 3. Elevated hemoglobin from severe dehydration 4. Severe dehydration PLAN: 1. Clinically, his symptoms have resolved including severe dehydration 2. He is tolerating diet and stable for discharge 3. Follow up in the office in 3 days. 4. Pain management with Ibuprofen and tylenol reviewed. Patient Condition at Discharge: Good Plan - Discharge Summary Discharge Rx Participant: No New Discharge Prescriptions: No Action Lisinopril-Hctz 20-12.5 mg [Zestoretic 20-12.5] 1 tab PO DAILY Discharge Medication List Lisinopril-Hctz 20-12.5 mg [Zestoretic 20-12.5] 1 tab PO DAILY 10/17/19 [History] Follow up Appointment(s)/Referral(s): Reynold Chavarria MD [STAFF PHYSICIAN] - 2 Weeks (Lead Python Developer, for your high hemoglobin level) Sandhya Rayo DO [Primary Care Provider] - 1-2 days
[2019-10-19] MEDS: LISINOPRIL-HCTZ 20-12.5 MG 1 EACH TAB PO SCH (12:06)
--- NOTE | 2019-10-23 10:25 | CDI ---
Documentation Clarification Form Date: 10/23/19 From: Angelika Yadav Phone: If you have a question about this query, please contact Denise Erazo, Activity Assistant at [phone] between 8am and 5pm. Admit Date: 10/17/19 Discharge Date: 10/19/19 Patient Name: DUY OROURKE Visit Number: [id number] ATTENTION: The Clinical Documentation Specialists (CDI) and [facility] Coding Staff appreciate your assistance in clarifying documentation. Please respond to the clarification below the line at the bottom and electronically sign. The CDI & [facility] Coding staff will review the response and follow-up if needed. Please note: Queries are made part of the Legal Health Record. If you have any questions, please contact the author of this message via ITS. Dear Dr. Shania Louis, The final diagnosis of the pathology report states: SMALL BOWEL, SEGMENTAL RESECTION: Acute ischemic enteritis with submucosal vascular congestion and acute serositis. Mucosal resection margins viable with early acute ischemic enteritis involving the margins. Documentation states: Postop DX: Strangulated small bowel due to complete small bowel obstruction from internal hernia Patient history/risk factors: alcohol dependence, polycythemia, dehydration, smoker Treatment: Robotic-assisted daVinci Xi laparoscopic small bowel resection. Robotic-assisted daVinci Xi laparoscopic resection of omental band/internal hernia Drainage of abdominal ascites slicing of peritoneal In your professional opinion, do you agree with the pathology report dx of: Small bowel-Acute ishemic enteritis with submucosal vascular congestion and acute serositis. Mucosal resection margins viable with early acute ischemic enteritis involving the margins. Yes No Other (please specify) Unable to determine Agree with pathologist for small bowel ischemia consistent with a small bowel obstruction 10/23/19 @11:47 MTDD
== END 2019-10-19 13:16 | disposition home or self-care (01) | DRG 347 ==
LOC: EC 14:16 → 4SSUR 16:08
PROVIDERS: ADMIT Surgery Plastic and Reconstructive Surgery; ATTEND Surgery Plastic and Reconstructive Surgery
PROC: 0W9G4ZX Drainage of Peritoneal Cavity, Percutaneous Endoscopic Approach, Diagnostic (ICD-10-PCS; principal; 2019-10-18 16:15)
PROC: 0DBA4ZZ Excision of Jejunum, Percutaneous Endoscopic Approach (ICD-10-PCS; principal; 2019-10-18 16:15)
PROC: 0DBU4ZZ Excision of Omentum, Percutaneous Endoscopic Approach (ICD-10-PCS; principal; 2019-10-18 16:15)
PROC: 8E0W4CZ Robotic Assisted Procedure of Trunk Region, Percutaneous Endoscopic Approach (ICD-10-PCS; principal; 2019-10-18 16:15)
DX: K46.1 Unspecified abdominal hernia with gangrene (principal); K55.019 Acute (reversible) ischemia of small intestine, extent unspecified; R18.8 Other ascites; I11.9 Hypertensive heart disease without heart failure; F10.20 Alcohol dependence, uncomplicated; Z20.828 Contact with and (suspected) exposure to other viral communicable diseases; Y90.2 Blood alcohol level of 40-59 mg/100 ml; E07.9 Disorder of thyroid, unspecified; D75.1 Secondary polycythemia; E86.0 Dehydration; D72.829 Elevated white blood cell count, unspecified; F17.210 Nicotine dependence, cigarettes, uncomplicated; Z71.6 Tobacco abuse counseling; Z79.899 Other long term (current) drug therapy; Z82.49 Family history of ischemic heart disease and other diseases of the circulatory system; Z82.5 Family history of asthma and other chronic lower respiratory diseases; Z80.42 Family history of malignant neoplasm of prostate
CPT/HCPCS: 36415; 74177; 80048; 80053; 80320; 81003; 81270; 82150; 82607; 82668; 82728; 82746; 83540; 83550; 83605; 83615; 83690; 83735; 84260; 84550; 85025; 85610; 85730; 87635; 88307; 96361; 96372; 96374; 96375; 99285

== ENCOUNTER → 2019-10-28 | Outpatient (CLI) | payer BC ==
[2019-10-28 09:50] LABS: Basophils # (A) 0.1 k/uL (0-0.2); Basophils % (A) 1 %; Eosinophils # (A) 0.1 k/uL (0-0.7); Eosinophils % (A) 1 %; HCT 46.4 % (39.0-53.0); Lymphocytes # (A) 1.8 k/uL (1.0-4.8); Lymphocytes % (A) 14 %; MCH 33.1 pg (25.0-35.0); MCHC 32.3 g/dL (31.0-37.0); MCV 102.3 fL (80.0-100.0); Mean Platelet Volume 7.9; Monocytes # (A) 0.8 k/uL (0-1.0); Monocytes % (A) 7 %; Neutrophils # (A) 9.2 k/uL (1.3-7.7); Neutrophils % (A) 76 %; RBC 4.54 m/uL (4.30-5.90); RDW 12.1 % (11.5-15.5); WBC 12.2 k/uL (3.8-10.6)
[2019-10-28 09:57] LABS: Platelet Count 525 k/uL (150-450)
[2019-10-28 15:28] LABS: African American GFR (CKD) 116.6 (60.0-200.0); Anion Gap 7.9 mmol/L (4.00-12.00); BUN/Creat Ratio 16.67 Ratio (12.00-20.00); Calcium 9.7 mg/dL (8.7-10.3); Carbon Dioxide 28.1 mmol/L (21.6-31.8); Non-African American GFR(CKD) 100.6 (60.0-200.0); Potassium 4.7 mmol/L (3.5-5.5)
== END | disposition home or self-care (01) ==
LOC: LABWHC1 08:43
PROVIDERS: ATTEND Surgery Plastic and Reconstructive Surgery
DX: K56.0 Paralytic ileus (principal); D50.9 Iron deficiency anemia, unspecified
CPT/HCPCS: 36415; 80048; 85025

== ENCOUNTER → 2020-01-28 | Day surgery (SDC) | payer BC ==
[~2020-01-28] MED LIST: LACTATED RINGERS 1,000 ML IV SCH; LIDOCAINE 1% (10MG/ML) FOR IV START INTRADERMA PRN; LIDOCAINE 1% INJ 10MG/ML (20 ML MDV) ONE; MIDAZOLAM 2 MG/2 ML VIAL ONE; PROPOFOL 10 MG/ML 20 ML VIAL IV ONE; fentaNYL (PF) 50 MCG/ML 2 ML AMP ONE
--- NOTE | 2020-01-28 07:39 | P.GSHP ---
History of Present Illness H&P Date: 01/28/20 CHIEF COMPLAINT: GERD and colon screen HISTORY OF PRESENT ILLNESS: The patient is a 49-year-old male who presents with gastroesophageal reflux disease and need for colon screen. Upper and lower endoscopy were offered for further evaluation and management. PAST MEDICAL HISTORY: Please see list. PAST SURGICAL HISTORY: Please see list. MEDICATIONS: Please see list. ALLERGIES: Please see list. SOCIAL HISTORY: No illicit drug use FAMILY HISTORY: No reports of Crohn disease or ulcerative colitis. REVIEW OF ORGAN SYSTEMS: CONSTITUTIONAL: No reports of fevers or chills. GI: Denies any blood in stools or constipation. PHYSICAL EXAM: VITAL SIGNS: Stable GENERAL: Well-developed pleasant in no acute distress. HEENT: No scleral icterus. Extraocular movements grossly intact. Moist buccal mucosa. NECK: Supple without lymphadenopathy. CHEST: Unlabored respirations. Equal bilateral excursions. CARDIOVASCULAR: Regular rate and rhythm. Distal 2+ pulses. ABDOMEN: Soft, nondistended. MUSCULOSKELETAL: No clubbing, cyanosis, or edema. ASSESSMENT: 1. Gastroesophageal reflux disease 2. Colon screen. PLAN: 1. Recommend proceeding with an upper and lower endoscopy Past Medical History Past Medical History: Hypertension, Thyroid Disorder Additional Past Medical History / Comment(s): CURRENT: CHANGES IN BOWEL HABITS. ETOH. History of Any Multi-Drug Resistant Organisms: None Reported Past Surgical History: Bowel Resection Additional Past Surgical History / Comment(s): 10/18/19 SMALL BOWEL RESECTION. Past Anesthesia/Blood Transfusion Reactions: No Reported Reaction Past Psychological History: No Psychological Hx Reported Smoking Status: Current every day smoker, Vaper Past Alcohol Use History: Daily Additional Past Alcohol Use History / Comment(s): SMOKES ABOUT 5-10 PER DAY. 6 DAYS PER DAY Past Drug Use History: None Reported - Past Family History Father Family Medical History: Hypertension Mother Family Medical History: COPD, Hypertension Additional Family Medical History / Comment(s): Mother is . Patients grandfather from prostate cancer. Medications and Allergies Home Medications Medication Instructions Recorded Confirmed Type Lisinopril-Hctz 20-12.5 mg 1 tab PO QAM 10/17/19 01/27/20 History [Zestoretic 20-12.5] Acetaminophen Tab [Tylenol Tab] 500 mg PO Q6H PRN #30 tablet 05/17/20 08/25/20 Rx Ibuprofen [Motrin] 600 mg PO Q8HR PRN #30 tab 10/19/19 01/27/20 Rx Allergies Allergy/AdvReac Type Severity Reaction Status Date / Time No Known Allergies Allergy Verified 01/27/20 10:56
[2020-01-28 10:19] VITALS: TEMP 97.8
--- NOTE | 2020-01-28 11:08 | P.PCN ---
Date of Procedure: 01/28/20 Description of Procedure: PREOPERATIVE DIAGNOSIS: Gastroesophageal reflux disease. Unintentional weight loss POSTOPERATIVE DIAGNOSIS: Gastroesophageal reflux disease. Unintentional weight loss Esophagitis Gastritis. OPERATION: Esophagogastroduodenoscopy with biopsies along antrum and distal esophagus SURGEON: Shania Louis MD ANESTHESIA: MAC. INDICATIONS: The patient is a 49-year-old male who presents with a history of reflux disease. Benefits and risks of the procedure were described. Informed consent was obtained. DESCRIPTION: The patient was brought into the endoscopy suite and laid in the left lateral decubitus position. An Olympus gastroscope was passed along the posterior oropharynx down to the distal esophagus where the squamocolumnar junction was encountered at 40 cm from the incisors. The stomach was entered and no bile reflux was found. Additional findings are listed below. Biopsies with cold forceps were obtained of the antrum. The first through third portion of the duodenum was examined and unremarkable. Retroflexion of the scope confirmed Hill grade 2 lower esophageal valve. The squamocolumnar junction demonstrated LA grade C erosive esophagitis. The stomach was desufflated. The patient tolerated the procedure well. FINDINGS: Squamocolumnar junction 40 cm from the incisors. Diaphragmatic hiatus at 40 cm. Hill grade 4 lower esophageal valve. LA grade C erosive esophagitis. No active duodenitis. Chronic gastritis RECOMMENDATIONS: Upper endoscopy as needed.
--- NOTE | 2020-01-28 11:37 | P.PCN ---
Date of Procedure: 01/28/20 Description of Procedure: PREOPERATIVE DIAGNOSIS: Change in bowel habits Unintentional weight loss POSTOPERATIVE DIAGNOSIS: Change in bowel habits Unintentional weight loss Colitis OPERATION: Colonoscopy to the cecum, ileocecal valve and appendiceal orifice with random colon biopsies SURGEON: Shania Louis MD. ANESTHESIA: MAC. INDICATIONS: The patient is a 49-year-old male who presents with change in bowel habits, abdominal pain including unintentional weight loss. Benefits and risks were de scribed and informed consent was obtained. DESCRIPTION OF PROCEDURE: The patient had undergone . He had been brought into the operating room and laid in the left lateral decubitus position. After adequate intravenous sedation, the rectum was examined with 2% lidocaine jelly. No external hemorrhoids were encountered. The rectal tone was within normal limits. No lesions were palpated in the rectal vault. An Olympus colonoscope was negotiated as the sigmoid colon however with narrowing at 20 cm from the anal verge. A pediatric colonoscope was exchanged and advanced until the cecum, ileocecal valve and appendiceal orifice were clearly viewed. The prep was fair. The mucosa of the sigmoid colon was atrophic with redundant transverse and sigmoid colon. No sigmoid diverticulosis was found. No colonic polyps were found. Random biopsies were obtained throughout the colon with cold forceps for colitis. Retroflexion of the scope demonstrated grade 1 internal hemorrhoids without active bleeding or inflammation. The colon was desufflated. The patient had tolerated the procedure well. Withdrawal time was over 6 minutes. FINDINGS: Aronchick preparation quality scale 2 (1-5) Internal hemorrhoids, grade 1 No external prolapsed hemorrhoids. No arteriovenous malformations. No adenomatous polyps. Atrophic colitis with random biopsies obtained with cold forceps Stricture at 20 cm from the anal verge requiring pediatric colonoscope RECOMMENDATIONS: Colonoscopy per screening guidelines, age 51 Plan - Discharge Summary Discharge Rx Participant: No New Discharge Prescriptions: Continue Lisinopril-Hctz 20-12.5 mg [Zestoretic 20-12.5] 1 tab PO QAM Ibuprofen [Motrin] 600 mg PO Q8HR PRN #30 tab PRN Reason: Pain Acetaminophen Tab [Tylenol] 500 mg PO Q6H PRN #30 tablet PRN Reason: Pain Discharge Medication List Lisinopril-Hctz 20-12.5 mg [Zestoretic 20-12.5] 1 tab PO QAM 10/17/19 [History] Acetaminophen Tab [Tylenol] 500 mg PO Q6H PRN #30 tablet 10/19/19 [Rx] Ibuprofen [Motrin] 600 mg PO Q8HR PRN #30 tab 10/19/19 [Rx] Follow up Appointment(s)/Referral(s): Shania Louis MD [STAFF PHYSICIAN] - 02/17/20 Patient Instructions/Handouts: Microscopic Colitis (DC), Gastritis (DC), Diet for Stomach Ulcers and Gastritis (ED), Gastroesophageal Reflux Disease (DC) Activity/Diet/Wound Care/Special Instructions: Repeat colonoscopy, age 51 Discharge Disposition: HOME SELF-CARE
[2020-01-28 11:45] VITALS: BP 119/80; PULSE 73; RESP 17
== END | disposition home or self-care (01) ==
LOC: ORWHC2ENDO 09:57
PROVIDERS: ATTEND Surgery Plastic and Reconstructive Surgery
DX: K52.839 Microscopic colitis, unspecified (principal); Q43.8 Other specified congenital malformations of intestine; K29.50 Unspecified chronic gastritis without bleeding; K21.0 Gastro-esophageal reflux disease with esophagitis; K22.10 Ulcer of esophagus without bleeding; K64.0 First degree hemorrhoids; K62.4 Stenosis of anus and rectum; I10 Essential (primary) hypertension; E07.9 Disorder of thyroid, unspecified; F17.290 Nicotine dependence, other tobacco product, uncomplicated; Z79.899 Other long term (current) drug therapy; Z90.49 Acquired absence of other specified parts of digestive tract; Z82.49 Family history of ischemic heart disease and other diseases of the circulatory system; Z82.5 Family history of asthma and other chronic lower respiratory diseases; Z80.42 Family history of malignant neoplasm of prostate
CPT/HCPCS: 88305; 45380; 43239; J2250; J2001; J3010; J2704